=== PATIENT | female | born 1965 | race Caucasian/White ===

== ENCOUNTER 2016-07-27 09:54 | Day surgery (SDC) | payer OTHER ==
[2016-07-24 14:40] VITALS: BMI 27.0
[~2016-07-27 09:54] MED LIST: LACTATED RINGERS 1,000 ML IV SCH
[2016-07-27 12:00] VITALS: TEMP 98.7
[2016-07-27] MEDS ORDERED: LIDOCAINE 1% 20 ML VIAL (10MG/ML) FOR IV START INTRADERMA ONE (12:24)
[2016-07-27] MEDS ORDERED: PROPOFOL 10 MG/ML 20 ML VIAL IV ONE (12:32)
[2016-07-27] MEDS ORDERED: fentaNYL (PF) 50 MCG/ML 2 ML AMP ONE (12:32)
[2016-07-27] MEDS ORDERED: MIDAZOLAM 2 MG/2 ML VIAL ONE (12:32)
--- NOTE | 2016-07-27 12:53 | P.PCN ---
Date of Procedure: 07/27/16 Procedure(s) Performed: BRIEF HISTORY: Patient is a 50-year-old pleasant white female, scheduled for an elective colonoscopy as a part of screening for colorectal neoplasia. PROCEDURE PERFORMED: Colonoscopy. PREOPERATIVE DIAGNOSIS: Screening for colon cancer IV sedation per Anesthesia. PROCEDURE: After informed consent was obtained, the patient, was brought into the endoscopy unit. IV sedation was administered by Anesthesia under continuous monitoring. Digital rectal examination was normal. Initially the Olympus CF- 160 flexible video colonoscope was then inserted in the rectum, gradually advanced into the cecum without any difficulty. Careful examination was performed as the scope was gradually being withdrawn. Ileocecal valve and the appendiceal orifice were visualized and appeared normal. Prep was excellent. Mucosa of the cecum, ascending colon, transverse colon, descending colon, sigmoid colon, and rectum appeared normal. Retroflexion was performed in the rectum and small internal hemorrhoids were seen. The patient tolerated the procedure well. IMPRESSION: Normal-appearing colon from rectum to cecum with no evidence of colorectal neoplasia . Small internal hemorrhoids. RECOMMENDATIONS: Findings of this examination were discussed with the patient as well as her family. She was advised to have a repeat screening colonoscopy in 10 years.
[2016-07-27 13:11] VITALS: BP 104/72; PULSE 71; RESP 16
== END 2016-07-27 13:46 | disposition home or self-care (01) ==
LOC: ORWHC2ENDO 09:54
PROVIDERS: ATTEND Internal Medicine Gastroenterology
DX: Z12.11 Encounter for screening for malignant neoplasm of colon (principal); K64.8 Other hemorrhoids; I10 Essential (primary) hypertension; Z87.891 Personal history of nicotine dependence; G43.909 Migraine, unspecified, not intractable, without status migrainosus; Z79.1 Long term (current) use of non-steroidal anti-inflammatories (NSAID); Z79.899 Other long term (current) drug therapy
CPT/HCPCS: 81025; J2250; J3010; J2704; G0121

== ENCOUNTER → 2016-08-23 | Outpatient (CLI) | payer OTHER ==
--- NOTE | 2016-08-23 20:00 | CONS ---
DATE OF CONSULTATION: 08/23/2016 CONSULTATION/NEW PATIENT EVALUATION HISTORY OF PRESENT ILLNESS/SLEEP-WAKE EVALUATION: 51-year-old lady who has been evaluated in the sleep center for possible obstructive sleep apnea-hypopnea syndrome. SLEEP SCHEDULE: Patient's usual sleep schedule on working days is from around midnight until 7 or 8:00 a.m. and weekends from around midnight until 9:30 to 10:00 a.m. FALLING ASLEEP: No problem with falling asleep. She has a TV set in bedroom. DURING SLEEP: She prefers to sleep on the stomach position because in that position her snoring is less. She wakes up from sleep several times with up to 3 episodes of nocturia. She snores. Wakes up with a dry mouth. DURING THE DAY/WAKE STATE: During the day she feels sleepy. Has problems with memory, [place] Sleepiness Scale significantly increased to 12. PAST MEDICAL HISTORY: Positive for hypertension and migraines. Allergies. PAST SURGICAL HISTORY: Cholecystectomy. Two C-sections and uterus ablation. MEDICATIONS: 1. ( ). 2. Topamax. 3. Imitrex. 4. Linsey-D. SOCIAL HISTORY: Negative for smoking. Alcohol consumption occasional. FAMILY HISTORY: Hypertension, snoring, headaches, cancer, diabetes. REVIEW OF SYSTEMS: Multiple awakenings from sleep, sleepiness during the day. No fevers. No double vision. No recent chest pain. No shortness of breath. No abdominal pain. No bleeding episodes. No blood in urine. No seizure episodes. PHYSICAL EXAMINATION: During physical examination, lady without distress. VITAL SIGNS: BP 131/91, HR 88, RR 16. Height 5 feet foot 0. Weight 149 BMI 29. Neck 13 inches in circumference. Temperature 98.2. Oxygen saturation at room air 99%. Oropharynx retrognathia 1 to 2 mm, low position of soft palate. Short distance between soft palate and pharyngeal wall, small nasal passages with some restriction of nasal breathing. NECK: Supple. No JVD. Thyroid is not palpable. LUNGS: Clear to percussion and to auscultation. Good air exchange. No wheezing or rhonchi. HEART: S1, S2 regular. No murmurs, gallops or rubs. ABDOMEN: Soft and nontender. Bowel sounds are present. No organomegaly appreciated. EXTREMITIES: No clubbing or cyanosis. HOMICIDE SQUAD SERGEANT: Awake, alert, and oriented x3. Cranial nerves 2 to 7 intact. There is no fasciculation or atrophy noted. No focal deficits observed. IMPRESSION: 1. Snoring, multiple awakenings from sleep, small oropharyngeal air space, retrognathia, possible obstructive sleep apnea-hypopnea syndrome. 2. Some overweight. BMI 29. 3. Hypertension. 4. History of migraines. 5. Allergies. 6. Status post cholecystectomy. 7. Status post C-sections. 8. Status post uterine ablation for bleeding. PLAN: 1. Polysomnography for evaluation of patient's breathing during sleep. 2. CPAP/BiPAP titration if sleep study confirms obstructive sleep apnea-hypopnea syndrome. 3. Preferable position during sleep on the side. 4. No driving if patient feels any sleepiness. Patient is aware of civil and criminal liability for unsafe driving. 5. I will see patient for follow-up visit to explain results of the testing and following plan. Thank you very much for referring this patient for consultation. Sincerely, Brennan Webber MD, PhD, FAASM. Diplomat of [place] [employer], Sleep Medicine Board by [place] [employer] [place] [employer] Electroplating Technician of [facility] [place]
== END | disposition home or self-care (01) ==
LOC: SLEEP 16:00
PROVIDERS: ATTEND Internal Medicine
DX: R06.83 Snoring (principal); I10 Essential (primary) hypertension; E66.3 Overweight; Z68.29 Body mass index [BMI] 29.0-29.9, adult; Z90.49 Acquired absence of other specified parts of digestive tract; Z98.890 Other specified postprocedural states
CPT/HCPCS: 99211

== ENCOUNTER → 2016-09-10 | Outpatient (CLI) | payer OTHER ==
--- NOTE | 2016-09-10 13:55 | MM ---
Reason for exam: screening (asymptomatic). Last mammogram was performed 1 year and 3 months ago. History: Patient is postmenopausal. Family history of premenopausal breast cancer in maternal cousin at age 30. Benign excisional biopsy of the left breast, 2004. Took hormonal contraceptives for 3 years beginning at age 21. Physical Findings: A clinical breast exam by your physician is recommended on an annual basis and results should be correlated with mammographic findings. MG 3D Screening Mammo W/Cad Bilateral CC and MLO view(s) were taken. Prior study comparison: June 03, 2015, bilateral MG screening mammo w CAD. August 17, 2014, bilateral MG diagnostic mammo w CAD RAUL. The breast tissue is heterogeneously dense. This may lower the sensitivity of mammography. There is no discrete abnormality. No significant changes when compared with prior studies. ASSESSMENT: Negative, BI-RAD 1 RECOMMENDATION: Routine screening mammogram of both breasts in 1 year.
== END | disposition home or self-care (01) ==
LOC: RADMAMWWP 09:23
PROVIDERS: ATTEND Obstetrics & Gynecology
DX: Z12.31 Encounter for screening mammogram for malignant neoplasm of breast (principal); Z80.3 Family history of malignant neoplasm of breast
CPT/HCPCS: 77063; G0202

== ENCOUNTER → 2016-10-11 | Outpatient (CLI) | payer OTHER ==
--- NOTE | 2016-10-11 16:27 | PN ---
DATE OF SERVICE: 10/11/2016 This patient is a 51-year-old lady who has been followed in the sleep center. She is here to discuss results of diagnostic sleep study and plan of treatment. I discussed the results of her polysomnogram with the patient in detail. No significant respiratory abnormalities have been documented, with 3% oxygen desaturation criteria for scoring of hypopneas. Total apnea/hypopnea index was only 1.3. Lowest oxygen level was 91.1%, which is totally normal. At the same time, the patient continued to feel some sleepiness during the day; [place] Sleepiness Scale today is 14. Latency to first REM period was shorter than normal; only 43.5 minutes, which indicates possible necessity for differential with narcolepsy. MEDICATIONS: 1. Topamax. 2. Calan. 3. Imitrex. 4. Linsey D. PHYSICAL EXAM: The patient is in no distress. VITAL SIGNS: Blood pressure 112/90, heart rate 83, respiratory rate 16, oxygen saturation on room air 100%. Temperature 97.3. Height 60. Weight 149.8. BMI 29. GENERAL: A pleasant patient without distress. HEENT: PERRLA. EOMI. Evaluation of oropharynx showed tongue protrudes midline. Moderately low position of soft palate. NECK: Supple. No JVD. Thyroid is not palpable. LUNGS: Clear to percussion and to auscultation. Good air exchange. No wheezing or rhonchi. HEART: S1, S2 regular. No murmurs, gallops or rubs. ABDOMEN: Soft and non-tender. Bowel sounds are present. No organomegaly appreciated. EXTREMITIES: No clubbing or cyanosis. BLACK POWDER GLAZING OPERATOR: Awake, alert and oriented x3. Cranial nerves 2 through 7 are intact. There is no fasciculation or atrophy noted. No focal deficits observed. IMPRESSION: 1. No significant respiratory abnormalities by results of polysomnogram. 2. Mild to moderate snoring documented during the sleep study. 3. Patient continues to have symptoms of excessive daytime sleepiness; [place] Sleepiness Scale is 14. Latency to first REM period during the PSG was shorter than normal at 43 minutes. Differential diagnosis includes narcolepsy. 4. Hypertension. 5. History of migraines. PLAN: 1. Polysomnography with following multiple sleep latency test for objective evaluation of patients symptoms of excessive daytime sleepiness. 2. Watching and losing weight. 3. Sleep hygiene with regular time in bed for at least 8 hours. 4. No driving if feeling any sleepiness. 5. Preferable position during sleep on the side, slightly up. Thank you very much for allowing me to participate in the management of your patient. Sincerely, Brennan Webber. , PhD, FAASM. Diplomat of [place] [employer], Sleep Medicine Board by [place] Food And Drug Research Scientist of [facility] [place] SHIVA
== END ==
LOC: SLEEP 10:37
PROVIDERS: ATTEND Internal Medicine
DX: G47.10 Hypersomnia, unspecified (principal); I10 Essential (primary) hypertension; R06.83 Snoring; Z79.899 Other long term (current) drug therapy

== ENCOUNTER → 2018-06-19 | Outpatient (CLI) | payer OTHER ==
--- NOTE | 2018-06-19 14:57 | CT ---
EXAMINATION TYPE: CT sinus wo con DATE OF EXAM: 06/19/2018 COMPARISON: MRI brain March 08, 2015 HISTORY: Nasal congestion CT DLP: 624.2 mGycm. Automated Exposure Control for Dose Reduction was Utilized. TECHNIQUE: CT scan of the sinuses is performed without contrast, axial images are obtained, coronal r eformatted images are also reviewed. FINDINGS: There is redemonstration of tiny 9 mm mucous retention cyst or polyp in the anterior inferi or left maxillary sinus axial image 4. There is completely opacified right posterior ethmoid sinus ax ial image 25 and round opacified lesion lateral left anterior ethmoid sinus axial image 29 [address] s mall polyp. Remainder paranasal sinuses are clear without abnormal opacification or air-fluid levels The ostiomeatal complex is patent bilaterally on the coronal images. Nasal septum remains slightly d eviated to right of midline. Visualized portion of mastoid air cells show no abnormal opacification. The globes are intact bilate rally. Visualized portion of brain parenchyma is unremarkable. IMPRESSION: Mild chronic paranasal sinus disease. No acute sinusitis. Some rightward nasal septal de viation redemonstrated.
== END | disposition home or self-care (01) ==
LOC: RADCTMAIN 14:27
PROVIDERS: ATTEND Otolaryngology
DX: J34.2 Deviated nasal septum (principal); J32.9 Chronic sinusitis, unspecified
CPT/HCPCS: 70486

== ENCOUNTER → 2018-07-21 | Outpatient (CLI) | payer OTHER ==
--- NOTE | 2018-07-22 11:39 | MM ---
Reason for exam: screening (asymptomatic). Last mammogram was performed 1 year and 10 months ago. History: Patient is postmenopausal. Family history of premenopausal breast cancer in maternal cousin at age 30. Benign excisional biopsy of the left breast, 2004. Took hormonal contraceptives for 3 years beginning at age 21. Physical Findings: A clinical breast exam by your physician is recommended on an annual basis and results should be correlated with mammographic findings. MG 3D Screening Mammo W/Cad Bilateral CC and MLO view(s) were taken. Prior study comparison: September 10, 2016, bilateral MG 3d screening mammo w/cad. June 03, 2015, bilateral MG screening mammo w CAD. The breast tissue is heterogeneously dense. This may lower the sensitivity of mammography. There is a new right upper outer quadrant posterior depth mass 8cm from nipple. Stability of a left upper outer quadrant posterior depth mass is questioned and further work up is recommended. ASSESSMENT: Incomplete: need additional imaging evaluation, BI-RAD 0 RECOMMENDATION: Special view mammogram of both breasts. If lesion persists on supplemental views, image directed ultrasound is recommended. [facility] will attempt to contact patient to return for supplemental views and ultrasound if indicated.
== END ==
LOC: RADMAMWWP 09:56
PROVIDERS: ATTEND Obstetrics & Gynecology
DX: Z12.31 Encounter for screening mammogram for malignant neoplasm of breast (principal)
CPT/HCPCS: 77063; 77067

== ENCOUNTER → 2018-07-25 | Outpatient (CLI) | payer OTHER ==
--- NOTE | 2018-07-29 08:10 | MM ---
Reason for exam: additional evaluation requested from abnormal screening. Last mammogram was performed less than 1 month ago. History: Patient is postmenopausal. Family history of premenopausal breast cancer in maternal cousin at age 30. Benign excisional biopsy of the left breast, 2004. Took hormonal contraceptives for 3 years beginning at age 21. Physical Findings: Nurse did not find any significant physical abnormalities on exam. MG 3D Work Up W/Cad RAUL Bilateral spot compression CC, spot compression MLO, and LM view(s) were taken. Prior study comparison: July 21, 2018, bilateral MG 3d screening mammo w/cad. September 10, 2016, bilateral MG 3d screening mammo w/cad. The breast tissue is heterogeneously dense. This may lower the sensitivity of mammography. The previously seen abnormality resolves on additional views and appears as fibroglandular tissue compatible with summation. These results were verbally communicated with the patient and result sheet given to the patient on 07/25/18. ASSESSMENT: Benign, BI-RAD 2 RECOMMENDATION: Return to routine screening mammogram schedule for both breasts.
== END | disposition home or self-care (01) ==
LOC: RADMAMWWP 14:38
PROVIDERS: ATTEND Obstetrics & Gynecology
DX: R92.8 Other abnormal and inconclusive findings on diagnostic imaging of breast (principal)
CPT/HCPCS: 77066; G0279; 77062

== ENCOUNTER → 2019-01-21 | Outpatient (CLI) | payer OTHER ==
--- NOTE | 2019-01-21 16:29 | XR ---
EXAMINATION TYPE: XR chest 2V DATE OF EXAM: 01/21/2019 COMPARISON: None INDICATION: R05 TECHNIQUE: Frontal and lateral views of the chest are obtained. FINDINGS: The heart size is normal. The pulmonary vasculature is normal. The lungs are clear. IMPRESSION: 1. No acute pulmonary process.
== END | disposition home or self-care (01) ==
LOC: RADXRMAIN 11:38
PROVIDERS: ATTEND Family Medicine
DX: R05 Cough (principal)
CPT/HCPCS: 71046

== ENCOUNTER → 2019-09-11 | Outpatient (CLI) | payer OTHER ==
--- NOTE | 2019-09-15 11:23 | MM ---
Reason for exam: screening (asymptomatic). Last mammogram was performed 1 year and 2 months ago. History: Patient is postmenopausal. Family history of premenopausal breast cancer in maternal cousin at age 30. Benign excisional biopsy of the left breast, 2004. Took hormonal contraceptives for 3 years beginning at age 21. Physical Findings: A clinical breast exam by your physician is recommended on an annual basis and results should be correlated with mammographic findings. MG 3D Screening Mammo W/Cad Bilateral CC and MLO view(s) were taken. Prior study comparison: July 25, 2018, bilateral MG 3d work up w/cad RAUL. July 21, 2018, bilateral MG 3d screening mammo w/cad. The breast tissue is heterogeneously dense. This may lower the sensitivity of mammography. There is a stable left posterior depth lower outer quadrant mass. No suspicious abnormality. No significant changes when compared with prior studies. ASSESSMENT: Benign, BI-RAD 2 RECOMMENDATION: Routine screening mammogram of both breasts in 1 year.
== END | disposition home or self-care (01) ==
LOC: RADMAMWWP 09:58
PROVIDERS: ATTEND Obstetrics & Gynecology
DX: Z12.31 Encounter for screening mammogram for malignant neoplasm of breast (principal)
CPT/HCPCS: 77063; 77067

== ENCOUNTER → 2019-09-28 | Outpatient (CLI) | payer OTHER ==
--- NOTE | 2019-09-28 21:34 | US ---
EXAMINATION TYPE: US thyroid st tissue head/neck DATE OF EXAM: 09/28/2019 COMPARISON: NONE CLINICAL HISTORY: R22.1 Localized swelling, mass and lump, neck Superior to clavicle patient feels area of swelling bilateral, worse on left Area of patient's concern scanned, no lymphadenopathy or other suspicious solid or cystic masses or f luid collection or other abnormality seen on ultrasound. Bilateral neck scanned, no evidence of lymphadenopathy. IMPRESSION: Unremarkable study. If symptoms persist or worsen further investigation with CT or MRI ma y be warranted.
== END | disposition home or self-care (01) ==
LOC: RADUSWWP 16:08
PROVIDERS: ATTEND Family Medicine
DX: R22.1 Localized swelling, mass and lump, neck (principal)
CPT/HCPCS: 76536

== ENCOUNTER → 2019-10-28 | Outpatient (CLI) | payer OTHER ==
--- NOTE | 2019-10-28 15:06 | US ---
EXAMINATION TYPE: US venous doppler duplex UE DATE OF EXAM: 10/28/2019 COMPARISON: NONE CLINICAL HISTORY: R22.33 swelling, mass and lump, upper limb. Lumps bilateral neck, worse on the left for 7 months SIDE PERFORMED: bilateral Right Arm: No evidence of DVT Left Arm: No evidence of DVT Grayscale, color doppler, spectral doppler imaging performed of the deep veins of the bilateral upper extremities. There is normal flow, compressibility and vascular waveforms. IMPRESSION: No ultrasound evidence for acute deep or superficial venous thrombosis in either upper ex tremity.
== END | disposition home or self-care (01) ==
LOC: RADUSWWP 14:15
PROVIDERS: ATTEND Family Medicine
DX: R22.33 Localized swelling, mass and lump, upper limb, bilateral (principal)
CPT/HCPCS: 93970

== ENCOUNTER → 2019-11-27 | Outpatient (CLI) | payer OTHER ==
--- NOTE | 2019-11-27 08:58 | US ---
EXAMINATION TYPE: US abdomen comp/pelvis limited DATE OF EXAM: 11/27/2019 COMPARISON: NONE CLINICAL HISTORY: R16.0 HEPATOMEGALY. EXAM MEASUREMENTS: Liver Length: 15.6 cm Gallbladder Wall: Surgically absent CBD: 1.0 cm Spleen: 10.1 cm Right Kidney: 9.5 x 3.3 x 4.1 cm Left Kidney: 10.2 x 3.9 x 4.1 cm Pancreas: Obscured by bowel gas Liver: wnl Gallbladder: Surgically absent CBD: wnl Spleen: wnl Right Kidney: No hydronephrosis, nephrolithiasis or masses seen Left Kidney: No hydronephrosis , nephrolithiasis or masses seen Upper IVC: wnl Abd Aorta: proximal portion obscured by bowel gas, portions visualized wnl Bladder: wnl Bilateral Jets Seen Yes IMPRESSION: 1. Postcholecystectomy changes with the CBD at the upper limits of normal for postcholecystectomy pat ient.
== END | disposition home or self-care (01) ==
LOC: RADUSWWP 08:02
PROVIDERS: ATTEND Internal Medicine Rheumatology
DX: R16.0 Hepatomegaly, not elsewhere classified (principal); Z90.49 Acquired absence of other specified parts of digestive tract
CPT/HCPCS: 76700; 76857

== ENCOUNTER → 2020-07-18 | Outpatient (CLI) | payer OTHER ==
[2020-07-18 11:27] LABS: Appearance,Urine Cloudy (Clear); Bacteria,Urine Rare /hpf; Bilirubin,Urine Negative (Negative); Blood,Urine Negative (Negative); Color,Urine Yellow; Glucose,Urine (UA) Negative (Negative); Ketones,Urine Negative (Negative); Leukocyte Esterase,Urine Negative (Negative); Mucus,Urine Many /hpf; Nitrite,Urine Negative (Negative); PH, Urine 5.5 (5.0-8.0); Protein,Urine Trace (Negative); Specific Gravity,Urine 1.032 (1.001-1.035); Squamous Epithelial Cell,Urine 33 /hpf (0-4); Urobilinogen,Urine <2.0 mg/dL (<2.0); WBC,Urine 2 /hpf (0-5)
[2020-07-18 14:54] LABS: HGB 13.5 g/dL (12.0-15.0); MCH 30.5 pg (27.0-32.0); MCHC 32.9 g/dL (32.0-37.0); MCV 92.8 fL (80.0-97.0); Mean Platelet Volume 10.8 fL (9.5-12.2); Platelet Count 249 X 10*3/uL (140-440); RBC 4.42 X 10*6/uL (4.10-5.20); RDW 12.4 % (11.5-14.5); WBC 2.65 X 10*3/uL (4.50-10.00)
[2020-07-18 15:22] LABS: % Iron Saturation 17.94 (12.00-45.00); African American GFR (CKD) 96.9 (60.0-200.0); Albumin 4.5 g/dL (3.80-4.90); Albumin/Globulin Ratio 2.5 (1.60-3.17); Anion Gap 6.2 mmol/L (4.00-12.00); BUN/Creat Ratio 16.25 Ratio (12.00-20.00); Calcium 9.2 mg/dL (8.7-10.3); Carbon Dioxide 24.8 mmol/L (21.6-31.8); Globulin 1.8 g/dL (1.6-3.3); Magnesium 1.9 mg/dL (1.5-2.4); Non-African American GFR(CKD) 83.6 (60.0-200.0); Phosphorus 3.2 mg/dL (2.4-5.1); Potassium 4.1 mmol/L (3.5-5.5); Total Bilirubin 0.4 mg/dL (0.2-1.2); Total Protein 6.3 g/dL (6.2-8.2)
[2020-07-18 15:28] LABS: Ferritin 50.6 ng/mL (10.0-291.0)
== END | disposition home or self-care (01) ==
LOC: LABWHC1 09:50
PROVIDERS: ATTEND Nurse Practitioner Family
DX: N39.0 Urinary tract infection, site not specified (principal); N18.2 Chronic kidney disease, stage 2 (mild); D63.1 Anemia in chronic kidney disease
CPT/HCPCS: 36415; 80053; 81001; 82728; 83540; 83550; 83735; 84100; 85027

== ENCOUNTER → 2020-08-01 | Outpatient (CLI) | payer OTHER ==
--- NOTE | 2020-08-01 10:47 | MR ---
MR brachial plexus HISTORY: Pain in shoulder blade, swollen neck, M 54.2 Multiplanar multisequence and postcontrast images obtained through the left brachial plexus following 8 cc Gadavist IV Brachial plexus shows an unremarkable appearance. There is no evident mass. No abnormal enhancement. Degenerative disc changes are noted incidentally within the cervical spine. The left scapula shows normal bone marrow signal, there is some subchondral increased signal on inver laure recovery sequences within the bony glenoid. There is arthropathy chromic clavicular joint. Dista l acromion is downturned. Pseudocysts are present in the left humeral head. There is some hyperintens ity on inversion recovery sequences lateral to the humeral head within the soft tissues, correlate fo r possible prior injection. Thoracic spinal curvature is noted. Incidental thyroid nodule noted on th e left IMPRESSION: No evident brachial plexus abnormality. Correlate for injection site along the lateral sh oulder. Acromioclavicular joint arthropathy and additional findings above.
--- NOTE | 2020-08-01 11:23 | MR ---
EXAMINATION TYPE: MR cervical spine wo con DATE OF EXAM: 08/01/2020 COMPARISON: HISTORY: Pain in shoulder blade and swollen neck TECHNIQUE: Multiplanar, multisequence images of the cervical spine were acquired. C2-C3: No evidence for degenerative disc disease. No disc bulge/herniation or protrusion. No Canal stenosis. Foramina are patent bilaterally. C3-C4: Posterior extension endplate disc complex causes mild anterior mass effect on the thecal sac. No significant foraminal encroachment on the right, some mild foraminal encroachment suspected of the left, no significant spinal stenosis. C4-C5: Posterior extension endplate disc complex causes mild anterior mass effect on the thecal sac. No significant spinal stenosis or foraminal encroachment. C5-C6: Uncovertebral joint hypertrophy attributes to cause some left-sided foraminal encroachment. Po sterior extension of endplate disc complex causes anterior mass effect on the thecal sac. No signific ant spinal stenosis. C6-C7: There is some bilateral neural foraminal encroachment right greater than left. Posterior exten laure endplate disc complex causes mild anterior mass effect on the thecal sac. C7-T1: Left posterior paracentral disc protrusion causes anterolateral mass effect on the thecal sac. No significant spinal stenosis. No neural foraminal encroachment. Cervical segments are intact. There is normal alignment. Cervical spinal cord is of normal signal. Craniovertebral junction relationships are within normal limits. Cervical vertebral bodies show pre served height and alignment. Is multilevel spondylosis with associated endplate discogenic marrow sig nal change, loss of disc height signal present at intervertebral levels consistent with disc desiccat ion and degenerative disc disease. There is an underlying spinal curvature extending to the thoracic spine. Due to bright focus within the left lobe of the thyroid, lesion measures only approximately 8 mm and may represent a colloid cyst within the thyroid. IMPRESSION: Multilevel degenerative disc disease as described additional findings above.
== END | disposition home or self-care (01) ==
LOC: RADMRIMAIN 07:35
PROVIDERS: ATTEND Orthopaedic Surgery Orthopaedic Surgery of the Spine
DX: M50.23 Other cervical disc displacement, cervicothoracic region (principal); M50.30 Other cervical disc degeneration, unspecified cervical region; M47.812 Spondylosis without myelopathy or radiculopathy, cervical region; M43.8X2 Other specified deforming dorsopathies, cervical region; M43.8X4 Other specified deforming dorsopathies, thoracic region; M19.012 Primary osteoarthritis, left shoulder
CPT/HCPCS: 72141; 71552; A9585

== ENCOUNTER → 2020-10-05 | Outpatient (CLI) | payer OTHER ==
--- NOTE | 2020-10-06 11:01 | BD ---
EXAMINATION TYPE: Axial Bone Density DATE OF EXAM: 10/05/2020 COMPARISON: NONE CLINICAL HISTORY: Postmenopausal Height: 61 Weight: 179.5 FRAX RISK QUESTIONS: Alcohol (3 or more units per day): no Family History (Parent hip fracture): no Glucocorticoids (More than 3mos): no (Ex: prednisone, prednisolone, methylprednisolone, dexamethasone, and hydrocortisone). History of Fracture in Adulthood: no Secondary Osteoporosis: 1. Type 1 Diabetes: no 2. Hyperthyroidism: no 3. Menopause before 45: no 4. Malnutrition: no 5. Chronic liver disease: no Rheumatoid Arthritis: no Current Tobacco Use: no RISK FACTORS HISTORY OF: Surgery to Spine/Hip(right/left)/Wrist (right/left): no Family History of Osteoporosis: no Active: yes Diet low in dairy products/other sources of calcium: no Postmenopausal woman: age 55 Lost more than 2 inches in height since high school: no MEDICATIONS: blood pressure, water pill, cholesterol meds, kidney meds Additional History: EXAM MEASUREMENTS: Bone mineral densitometry was performed using the [employer]. Bone mineral density as measured about the Lumbar spine is: ----- L1-L4(G/cm2): 1.136 T Score Values are as follows: ----- L2: 0.1 ----- L3: 0.3 ----- L4: -0.6 ----- L1-L4: -0.4 Bone mineral density : baseline Bone mineral density about the R hip (g/cm2): 0.883 Bone mineral density about the L hip (g/cm2): 0.943 T Score values are as follows: -----R Neck: -1.1 -----L Neck: -0.7 -----R Total: -0.1 -----L Total: 0.1 Bone mineral density : baseline IMPRESSION: Normal (Values between +1 and -1 indicate normal bone mass). Consider repeating this study in 5 year s or sooner if there is some new clinical indication. NOTE: T-SCORE=SD OF THE YOUNG ADULT MEAN.
--- NOTE | 2020-10-07 14:11 | MM ---
Reason for exam: screening (asymptomatic). Last mammogram was performed 1 year and 1 month ago. History: Patient is postmenopausal. Family history of premenopausal breast cancer in maternal cousin at age 30. Benign excisional biopsy of the left breast, 2004. Took hormonal contraceptives for 3 years beginning at age 21. Physical Findings: A clinical breast exam by your physician is recommended on an annual basis and results should be correlated with mammographic findings. MG 3D Screening Mammo W/Cad Bilateral CC and MLO view(s) were taken. Prior study comparison: September 11, 2019, bilateral MG 3d screening mammo w/cad. July 25, 2018, bilateral MG 3d work up w/cad RAUL. The breast tissue is heterogeneously dense. This may lower the sensitivity of mammography. Right architectural distortion upper outer breast posterior depth. Bilateral axillary lymph node, ultrasound recommended. ASSESSMENT: Incomplete: need additional imaging evaluation, BI-RAD 0 RECOMMENDATION: Special view mammogram of the right breast. Ultrasound of both breasts. [facility] will attempt to contact patient to return for supplemental views and ultrasound.
== END | disposition home or self-care (01) ==
LOC: RADBDWWP 15:30
PROVIDERS: ATTEND Obstetrics & Gynecology
DX: Z12.31 Encounter for screening mammogram for malignant neoplasm of breast (principal); Z78.0 Asymptomatic menopausal state; Z80.3 Family history of malignant neoplasm of breast; Z79.3 Long term (current) use of hormonal contraceptives
CPT/HCPCS: 77063; 77067; 77080

== ENCOUNTER → 2020-10-13 | Outpatient (CLI) | payer OTHER | END | disposition home or self-care (01) ==

== ENCOUNTER → 2021-01-20 | Outpatient (CLI) | payer OTHER ==
[2021-01-20 14:40] LABS: Appearance,Urine Clear (Clear); Bilirubin,Urine Negative (Negative); Blood,Urine Negative (Negative); Color,Urine Colorless; Glucose,Urine (UA) Negative (Negative); Ketones,Urine Negative (Negative); Leukocyte Esterase,Urine Negative (Negative); Nitrite,Urine Negative (Negative); PH, Urine 5.5 (5.0-8.0); Protein,Urine Negative (Negative); Specific Gravity,Urine 1.004 (1.001-1.035); Urobilinogen,Urine <2.0 mg/dL (<2.0)
[2021-01-20 20:07] LABS: Basophils # (A) 0.03 X 10*3/uL (0.00-0.10); Basophils % (A) 0.7 %; Eosinophils # (A) 0.06 X 10*3/uL (0.04-0.35); Eosinophils % (A) 1.5 %; HCT 41.3 % (37.2-46.3); HGB 13.7 g/dL (12.0-15.0); Lymphocytes # (A) 0.86 X 10*3/uL (0.90-5.00); Lymphocytes % (A) 21.1 %; MCH 30.5 pg (27.0-32.0); MCHC 33.2 g/dL (32.0-37.0); Mean Platelet Volume 11.1 fL (9.5-12.2); Monocytes # (A) 0.41 X 10*3/uL (0.20-1.00); Neutrophils % (A) 66.2 %; Platelet Count 241 X 10*3/uL (140-440); RBC 4.49 X 10*6/uL (4.10-5.20); WBC 4.08 X 10*3/uL (4.50-10.00)
[2021-01-20 20:20] LABS: African American GFR (CKD) 83.4 (60.0-200.0); Albumin 4.7 g/dL (3.8-4.9); Albumin/Globulin Ratio 2.14 (1.60-3.17); Anion Gap 14.5 mmol/L (4.00-12.00); BUN/Creat Ratio 16.67 Ratio (12.00-20.00); Calcium 9.9 mg/dL (8.7-10.3); Carbon Dioxide 20.5 mmol/L (21.6-31.8); Globulin 2.2 g/dL (1.6-3.3); Magnesium 2.1 mg/dL (1.5-2.4); Phosphorus 3.3 mg/dL (2.4-5.1); Potassium 4.4 mmol/L (3.5-5.5); Total Bilirubin 0.5 mg/dL (0.30-1.20); Total Protein 6.9 g/dL (6.2-8.2)
== END | disposition home or self-care (01) ==
LOC: LABWHC1 13:07
PROVIDERS: ATTEND Nurse Practitioner Family
DX: N18.2 Chronic kidney disease, stage 2 (mild) (principal); N39.0 Urinary tract infection, site not specified; D64.9 Anemia, unspecified
CPT/HCPCS: 36415; 80053; 81001; 81003; 83735; 84100; 85025

== ENCOUNTER → 2021-11-02 | Outpatient (CLI) | payer OTHER ==
--- NOTE | 2021-11-03 16:38 | MM ---
Reason for Exam: Screening (asymptomatic). Last mammogram was performed 1 year(s) and 1 month(s) ago. Patient History: Menarche at age 14. First Full-Term at age 21. Postmenopausal. Hormonal Contraceptives for 3 years from age 21 until age 25. 2004, Benign Excisional Biopsy on the left side. Maternal cousin had breast cancer, age 30. Risk Values: Elisa 5 year model risk: 1.2%. NCI Lifetime model risk: 7.8%. Prior Study Comparison: 09/11/2019 Bilateral Screening Mammogram, [facility]. 10/05/2020 Bilateral Screening Mammogram, [facility]. 10/13/2020 Right Diagnostic Mammogram, [facility]. Tissue Density: The breast tissue is heterogeneously dense. This may lower the sensitivity of mammography. Findings: Analyzed By CAD. Stable nodule is within the inferior lateral left breast. No suspicious groups of microcalcifications, spiculated or lobular masses, architectural distortion or other secondary signs of malignancy are mammographically apparent. Overall Assessment: Benign, BI-RAD 2 Management: Screening Mammogram of both breasts in 1 year. A negative mammogram report should not preclude additional follow up of suspicious palpable abnormalities. Patient should continue monthly self breast exam. A clinical breast exam by your physician is recommended on an annual basis and results should be correlated with mammographic findings. Electronically signed and approved by: Moises Ray D.O. Radiologis
== END | disposition home or self-care (01) ==
LOC: RADMAMWWP 08:49
PROVIDERS: ATTEND Obstetrics & Gynecology
DX: Z12.31 Encounter for screening mammogram for malignant neoplasm of breast (principal); Z80.3 Family history of malignant neoplasm of breast; Z78.0 Asymptomatic menopausal state
CPT/HCPCS: 77063; 77067

== ENCOUNTER → 2023-01-18 | Outpatient (CLI) | payer OTHER ==
--- NOTE | 2023-01-22 14:46 | MM ---
Reason for Exam: Screening (asymptomatic). Last mammogram was performed 1 year(s) and 3 month(s) ago. Patient History: Menarche at age 14. First Full-Term at age 21. Postmenopausal. Hormonal Contraceptives for 3 years from age 21 until age 25. 2005, Benign Excisional Biopsy on the left side. Maternal cousin had breast cancer, age 30. Risk Values: Elisa 5 year model risk: 1.2%. NCI Lifetime model risk: 7.6%. Prior Study Comparison: 10/05/2020 Bilateral Screening Mammogram, [facility]. 10/13/2020 Right Diagnostic Mammogram, [facility]. 11/02/2021 Bilateral MG 3D screening mammo w/cad, [facility]. Tissue Density: The breast tissue is heterogeneously dense. This may lower the sensitivity of mammography. Findings: Analyzed By CAD. Abdomen appears symmetrical and stable. No significant interval change is evident. A few benign round calcifications are within the left breast. Couple of benign-appearing smooth bordered rounded densities in the inferior right mediolateral oblique view are present in the 2021 comparison. No suspicious groups of microcalcifications, spiculated or lobular masses, architectural distortion or other secondary signs of malignancy are mammographically apparent. Overall Assessment: Benign, BI-RAD 2 Management: Screening Mammogram of both breasts in 1 year. A negative mammogram report should not preclude additional follow up of suspicious palpable abnormalities. Patient should continue monthly self breast exam. A clinical breast exam by your physician is recommended on an annual basis and results should be correlated with mammographic findings. Electronically signed and approved by: Moises Ray D.O. Radiologis
== END | disposition home or self-care (01) ==
LOC: RADMAMWWP 14:26
PROVIDERS: ATTEND Obstetrics & Gynecology
DX: Z12.31 Encounter for screening mammogram for malignant neoplasm of breast (principal); Z80.3 Family history of malignant neoplasm of breast; Z78.0 Asymptomatic menopausal state
CPT/HCPCS: 77063; 77067

== ENCOUNTER → 2024-02-14 | Outpatient (CLI) | payer OTHER ==
--- NOTE | 2024-02-17 09:25 | MM ---
Reason for Exam: Screening (asymptomatic). Last mammogram was performed 1 year(s) and 1 month(s) ago. Patient History: Menarche at age 14. First Full-Term at age 21. Postmenopausal. Hormonal Contraceptives for 3 years from age 21 until age 25. 2005, Benign Excisional Biopsy on the left side. Maternal cousin had breast cancer, age 30. Risk Values: Elisa 5 year model risk: 1.3%. NCI Lifetime model risk: 7.4%. Prior Study Comparison: 10/13/2020 Right Diagnostic Mammogram, [facility]. 11/02/2021 Bilateral MG 3D screening mammo w/cad, [facility]. 01/18/2023 Bilateral MG 3D screening mammo w/cad, [facility]. Tissue Density: The breasts are heterogeneously dense, which may obscure small masses. Findings: Analyzed By CAD. Right breast: There is no suspicious group of microcalcifications or new suspicious mass. Benign-appearing calcifications right breast. Left breast: There is no suspicious group of microcalcifications or new suspicious mass. Benign-appearing calcifications left breast. Overall Assessment: Benign, BI-RAD 2 Management: Screening Mammogram of both breasts in [address] [facility] will attempt to contact patient to return for supplemental views and ultrasound if indicated. Patient should continue monthly self-breast exams. A clinical breast exam by your physician is recommended on an annual basis. This exam should not preclude additional follow-up of suspicious palpable abnormalities. Note on Elisa scores and lifetime risk: 1. A Elisa score greater than 3% is considered moderate risk. If this is the case, consider specialist referral to assess eligibility for a risk reducing agent. 2. If overall lifetime risk for the development of breast cancer is 20% or higher, the patient may qualify for future screening with alternating mammogram and breast MRI. [facility], , 02/17/2024 9:22 AM. Electronically signed and approved by: Ceferino Walker DO
== END | disposition home or self-care (01) ==
LOC: RADMAMWWP 10:06
PROVIDERS: ATTEND Obstetrics & Gynecology
DX: Z12.31 Encounter for screening mammogram for malignant neoplasm of breast (principal); R92.333 Mammographic heterogeneous density, bilateral breasts; Z78.0 Asymptomatic menopausal state; Z80.3 Family history of malignant neoplasm of breast
CPT/HCPCS: 77063; 77067